=== PATIENT | male | born 1965 | race African-American/Black ===

== ENCOUNTER 2016-08-31 10:05 | Emergency (ER) | payer MEDICAID ==
[2012-06-29 08:49] VITALS: BMI 27.5
[2016-08-31 11:00] LABS: APPEARANCE CLEAR (CLEAR); BILIRUBIN NEGATIVE (NEGATIVE); COLOR YELLOW (YELLOW); GLUCOSE NEGATIVE (NEGATIVE); KETONE NEGATIVE (NEGATIVE); LEUKOCYTE ESTERASE TRACE (NEGATIVE); NITRITE NEGATIVE (NEGATIVE); PROTEIN TRACE mg/dL (NEGATIVE); UROBILINOGEN NORMAL (NORMAL)
[2016-08-31 11:01] LABS: BACTERIA FEW /hpf (NONE SEEN); EPITHELIAL CELLS OCC /hpf (0-5); RED CELLS - URINE NONE SEEN /hpf (0-5); WHITE CELLS - URINE 0-5 /hpf (0-5)
== END 2016-08-31 13:15 | disposition home or self-care (01) ==
LOC: D.ER 10:05
PROVIDERS: Emergency Medicine
DX: M62.838 Other muscle spasm (principal); M54.10 Radiculopathy, site unspecified; M54.2 Cervicalgia; F17.200 Nicotine dependence, unspecified, uncomplicated

== ENCOUNTER 2017-07-26 06:41 | Emergency (ER) | payer MEDICAID ==
[2012-06-29 08:49] VITALS: BMI 27.5
[2017-07-26 07:11] LABS: BASOPHILS 0.3 % (0-2); EOSINOPHILS 3.3 % (0-7); HEMATOCRIT 38.2 % (42.0-54.0); HEMOGLOBIN 13.1 g/dL (13.5-17.5); IMMATURE GRANULOCYTES 0.3 % (0-5); LYMPHOCYTES 38.7 % (15-50); MCH 27.7 pg (26.0-34.0); MCHC 34.3 g/dL (31.0-37.0); MCV 80.8 fL (80.0-100.0); MONOCYTES 12.9 % (2-11); NEUTROPHILS 44.5 % (40-80); RBC 4.73 10x6/uL (4.20-6.10); RDW 14.6 % (11.5-14.5); WBC 3.3 10x3/uL (4.8-10.8)
[2017-07-26 07:13] LABS: PLATELET COUNT 224 10x3/uL (130-400)
[2017-07-26 07:26] LABS: ALBUMIN 3.7 g/dL (3.4-5.0); ALKALINE PHOSPHATASE 65 U/L (46-116); ALT (SGPT) 34 U/L (10-68); AMYLASE - SERUM 142 U/L (25-115); CALC OSMOLALITY 281 mosm/kg (275-300); CALCIUM 9.3 mg/dL (8.5-10.1); CARBON DIOXIDE 22.9 mmol/L (21.0-32.0); CHLORIDE - SERUM 104 mmol/L (98-107); CREATININE - SERUM 0.8 mg/dL (0.6-1.3); GLUCOSE 144 mg/dL (74-106); LIPASE 156 U/L (73-393); POTASSIUM - SERUM 3.7 mmol/L (3.5-5.1); PROTEIN - SERUM 7.9 g/dL (6.4-8.2); SODIUM 139 mmol/L (136-145); UREA NITROGEN 15 mg/dL (7-18); eGFR NON AFRICAN AMERICAN > 90 mL/min (90-120)
[2017-07-26 08:19] LABS: APPEARANCE CLEAR (CLEAR); BILIRUBIN NEGATIVE (NEGATIVE); COLOR YELLOW (YELLOW); GLUCOSE NEGATIVE (NEGATIVE); KETONE NEGATIVE (NEGATIVE); NITRITE NEGATIVE (NEGATIVE); PROTEIN NEGATIVE (NEGATIVE); UROBILINOGEN NORMAL (NORMAL)
== END 2017-07-26 13:02 | disposition home or self-care (01) ==
LOC: D.ER 06:41
PROVIDERS: Emergency Medicine; Family Medicine
DX: K59.00 Constipation, unspecified (principal); E27.9 Disorder of adrenal gland, unspecified; R10.31 Right lower quadrant pain

== ENCOUNTER 2017-09-30 04:33 | Emergency (ER) | payer MEDICAID ==
[2012-06-29 08:49] VITALS: BMI 27.5
[2017-09-30 05:00] LABS: BASOPHILS 0 % (0-2); EOSINOPHILS 1.8 % (0-7); HEMATOCRIT 39.8 % (42.0-54.0); HEMOGLOBIN 14.1 g/dL (13.5-17.5); IMMATURE GRANULOCYTES 0.3 % (0-5); LYMPHOCYTES 45.9 % (15-50); MCH 28.5 pg (26.0-34.0); MCHC 35.4 g/dL (31.0-37.0); MCV 80.4 fL (80.0-100.0); MEAN PLATELET VOLUME 10.1 fL (7.4-10.4); PLATELET COUNT 194 10x3/uL (130-400); RBC 4.95 10x6/uL (4.20-6.10); RDW 14.2 % (11.5-14.5); WBC 3.4 10x3/uL (4.8-10.8)
[2017-09-30 05:09] LABS: APTT 22.6 SECONDS (22.8-39.4); INR 0.91 (0.85-1.17); PROTIME 11.9 SECONDS (11.6-15.0)
[2017-09-30 05:11] LABS: D-DIMER-QUANTITATIVE 0.32 ug/mLFEU (0.20-0.54)
[2017-09-30 05:23] LABS: ALBUMIN 3.2 g/dL (3.4-5.0); ALKALINE PHOSPHATASE 69 U/L (46-116); ALT (SGPT) 26 U/L (10-68); BILIRUBIN - TOTAL 0.32 mg/dL (0.2-1.3); CALC OSMOLALITY 273 mosm/kg (275-300); CALCIUM 8.7 mg/dL (8.5-10.1); CHLORIDE - SERUM 103 mmol/L (98-107); CREATININE - SERUM 0.9 mg/dL (0.6-1.3); GLUCOSE 144 mg/dL (74-106); PROTEIN - SERUM 7.3 g/dL (6.4-8.2); SODIUM 135 mmol/L (136-145); UREA NITROGEN 14 mg/dL (7-18); eGFR NON AFRICAN AMERICAN > 90 mL/min (90-120)
[2017-09-30 05:31] LABS: CHOLESTEROL, TOTAL 267 mg/dL (0-200); CKMB 0.6 U/L (0.0-3.6); CREATINE KINASE 195 UL (21-232); HDL CHOLESTEROL 53 mg/dL (32-96); LDL CHOLESTEROL 161 mg/dL (0-100); MAGNESIUM - SERUM 2.1 mg/dL (1.8-2.4); TRIGLYCERIDE 268 mg/dL (30-200)
[2017-09-30 05:33] LABS: TROPONIN-I < 0.017 ng/mL (0.000-0.060)
== END 2017-09-30 07:41 | disposition home or self-care (01) ==
LOC: D.ER 04:33
PROVIDERS: Family Medicine
DX: R07.9 Chest pain, unspecified (principal); F17.200 Nicotine dependence, unspecified, uncomplicated

== ENCOUNTER 2018-01-10 04:41 | Emergency (ER) | payer MEDICAID ==
[~2018-01-10] VITALS: Ht 190.5 cm; Wt 102.3 kg
[2018-01-10 04:49] VITALS: BP 132/89; Ht 190.5 cm; Wt 102.3 kg
[2018-01-10] MEDS ORDERED: MINOCIN100 MG PO (05:20)
== END 2018-01-10 06:06 | disposition home or self-care (01) ==
LOC: D.ER 04:41
DX: S59.902A Unspecified injury of left elbow, initial encounter (principal); W18.31XA Fall on same level due to stepping on an object, initial encounter; Y93.89 Activity, other specified; Y92.019 Unspecified place in single-family (private) house as the place of occurrence of the external cause; I10 Essential (primary) hypertension; Z86.79 Personal history of other diseases of the circulatory system; F17.200 Nicotine dependence, unspecified, uncomplicated

== ENCOUNTER 2018-12-26 19:53 | Emergency (ER) | payer MEDICAID ==
[~2018-12-26] VITALS: Ht 190.5 cm; Wt 100.0 kg
[~2018-12-26 19:53] MED LIST: MINOCIN100 MG PO
[2018-12-26 20:04] VITALS: Ht 190.5 cm; Wt 100.0 kg
[2018-12-26] MEDS ORDERED: PRINIVIL10 MG PO (20:07)
[2018-12-26] MEDS ORDERED: UNK CHOLESTEROL MED (20:08)
[2018-12-26] MEDS ORDERED: UNK MUSCLE RELAXER (20:08)
[2018-12-26] MEDS ORDERED: HYDROCODON-ACE1 EA10 PO (20:08)
[2018-12-26] MEDS ORDERED: ROBAXIN500 MG PO (23:02)
[2018-12-26] MEDS ORDERED: VISTARIL50 MG PO (23:02)
[2018-12-26] MEDS ORDERED: MEDROL DOSE PACK4 MG PO (23:02)
[2018-12-26 23:18] VITALS: BP 167/91
== END 2018-12-26 23:19 | disposition home or self-care (01) ==
LOC: D.ER 19:53
DX: L23.7 Allergic contact dermatitis due to plants, except food (principal); M54.5 Low back pain